=== PATIENT | male | born 1940 | race Caucasian/White ===

== ENCOUNTER → 2022-06-02 12:39 | Outpatient (CLI) | payer MEDICARE, SELFPAY ==
--- NOTE | 2022-06-02 12:58 | CT_ITS ---
FINAL REPORT TECHNIQUE: Axial CT images of the abdomen and pelvis were obtained before and after the administration of IV contrast. This study was performed with techniques to keep radiation doses as low as reasonably achievable (ALARA). Individualized dose reduction techniques using automated exposure control or adjustment of mA and/or kV according to the patient''s size were employed. CLINICAL HISTORY: Abdominal pain hx of prostate cancer FINDINGS: Abdomen: There is mild bibasilar scarring. The heart is normal in size. There is mild fatty infiltration of the liver. The gallbladder is normal. The spleen is unremarkable. No adrenal masses present. There is stranding adjacent to the head of the pancreas and uncinate process of uncertain significance which may represent mild acute pancreatitis or sequela of prior pancreatitis. The kidneys enhance normally. The aorta is normal in caliber. There is no free fluid or adenopathy. No mass or abnormal fluid collection is seen. There are moderate vascular calcifications. There is a small umbilical hernia containing fat. Precontrast images demonstrate no evidence of nephrolithiasis. Pelvis: The appendix is not seen. There is descending and sigmoid diverticulosis. The urinary bladder is unremarkable. No inflammatory process is seen. There is no evidence of mass or adenopathy. There is no evidence of bowel obstruction. There are mild vascular calcifications. There are bilateral inguinal hernias containing fat, larger on the left. There are postoperative changes in the prostate. There are bilateral L5 pars defects. IMPRESSION: Stranding adjacent to the head of the pancreas and uncinate process of uncertain significance, may represent mild acute pancreatitis or sequela of prior pancreatitis. Small umbilical hernia and bilateral inguinal hernias containing fat. Descending and sigmoid diverticulosis. Reviewed, Interpreted and Dictated by Rubén Rainey III, MD Transcribed by Mireille Grace Authenticated and [facility]
[2022-06-02 13:02] LABS: Basophils # 0.1 K/mm3 (0-0.2); Basophils % 0.8 % (0.1-2.0); Eosinophils # 0.3 K/mm3 (0.0-0.4); Eosinophils % 3.9 % (0.1-12.0); Lymphocytes # 2.3 K/mm3 (0.7-4.5); Lymphocytes % 31.4 % (10-50); Mean Corpuscular HGB Conc 31.8 g/dL (31.8-35.4); Mean Corpuscular Hemoglobin 31.7 pg (27.0-31.2); Mean Corpuscular Volume 99.7 fl (80-94); Monocytes # 0.7 K/mm3 (0.1-1.0); Monocytes % 8.9 % (1.7-9.3); Neutrophils # 4.1 K/mm3 (1.8-7.8); Neutrophils % 55.1 % (37.0-80.0); Platelet Count 208 K/mm3 (142-424); Red Blood Count 4.41 M/mm3 (4.60-6.20); Red Cell Distribution Width 14.4 % (11.5-17.5); White Blood Count 7.4 K/mm3 (4.8-10.8)
[2022-06-02 13:12] LABS: Chloride 103 mmol/L (98-107); Potassium 4.8 mmoL/L (3.5-5.1); Sodium 140 mmol/L (136-145)
[2022-06-02 13:15] LABS: Alanine Aminotransferase 15 U/L (12-78); Albumin Level 4.3 g/dl (3.5-5.0); Albumin/Globulin Ratio 1.4 (1.1-1.8); Alkaline Phosphatase 80 U/L (38-126); Anion Gap 13.8 mEq/L (5-15); Aspartate Amino Transferase 22 U/L (17-59); Bilirubin,Total 0.5 mg/dl (0.2-1.3); Blood Urea Nitrogen 17 mg/dl (9-20); Calcium 9.4 mg/dl (8.4-10.2); Carbon Dioxide 28 mmol/L (22.0-30.0); Estimated Glomerular Filt Rate 64 ml/min (>60); GFR (African American) 78 ML/MIN (>60); Glucose 87 mg/dl (74-100); Lipase 111 U/L (23-300); Total Protein,Serum 7.3 g/dl (6.3-8.2)
== END ==
LOC: LAB 12:43 → LAB.DROPOF 15:54
PROVIDERS: PCP Family Medicine; Visit Provider Family Medicine
DX: R10.9 Unspecified abdominal pain (principal); N39.0 Urinary tract infection, site not specified
CPT/HCPCS: 74178; 80053; 83690; 85025; 87086; Q9967

== ENCOUNTER → 2022-06-09 14:25 | Outpatient (CLI) | payer MEDICARE, SELFPAY ==
[2022-06-09 18:52] LABS: Lipase 52 U/L (23-300)
== END ==
PROVIDERS: PCP Family Medicine; Visit Provider Family Medicine
DX: C61 Malignant neoplasm of prostate (principal)
CPT/HCPCS: 83690